=== PATIENT | female | born 1980 | race Two or more races ===

== ENCOUNTER 2024-10-17 16:15 | Emergency (ER) | payer MEDICAID, SELFPAY ==
[2024-10-17 16:15] VITALS: BMI 35.4
[2024-10-17 16:24] VITALS: BP 124/86; PULSE 71; RESP 20; TEMP 37.2; O2SAT 95
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
[2024-10-17] MEDS: IBUPROFEN TAB 400 MG TABLET 800 MG PO (17:54)
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
[2024-10-17] MEDS: DIPHTH,PERTUSS(ACELL),TET VAC 0.5 ML SYR- ADULT IMi (21:55)
[2024-10-17 22:00] VITALS: BP 122/82; PULSE 73; RESP 18; TEMP 36.7; O2SAT 98
== END 2024-10-17 22:02 | disposition home or self-care (01) ==
PROVIDERS: Emergency Provider Emergency Medicine; PCP Family Medicine
DX: L23.9 Allergic contact dermatitis, unspecified cause (principal)
CPT/HCPCS: 70450; 70486; 71046; 73060; 73502; 90471; 90715; 99284; A9270